=== PATIENT | female | born 2000 | race Two or more races ===

== ENCOUNTER 2022-07-28 23:22 | Emergency (ER) | payer OTHER ==
[~2022-07-28] VITALS: Ht 152.4 cm; Wt 45.4 kg
[2022-07-29] MEDS ORDERED: KETO10TA2 PO (05:36)
== END 2022-07-29 05:46 ==
LOC: ER 23:22 → EMR PED 23:22 → ER 07-29 00:16
DX: N83.202 Unspecified ovarian cyst, left side (principal)